=== PATIENT | female | born 1960 | race Two or more races ===

== ENCOUNTER → 2023-06-06 | Emergency (ER) | payer OTHER ==
[~2023-06-06] VITALS: Ht 162.6 cm; Wt 45.4 kg
[~2023-06-06] MED LIST: GLIPIZIDE XL10 MG PO; GLUMETZA1000 MG PO; LISINOPRIL10 MG PO
== END | disposition left against medical advice (07) ==
LOC: ER 22:04
DX: Z53.21 Procedure and treatment not carried out due to patient leaving prior to being seen by health care provider (principal)

== ENCOUNTER 2024-03-31 21:16 | Inpatient (IN) | payer OTHER ==
[~2024-03-31] VITALS: Ht 147.3 cm; Wt 39.9 kg
--- NOTE | 2024-03-31 22:03 | NUR ---
PTE ALERTA Y ORIENTADA X3 QUIEN REFIERE VENIR YA QUE LA MISMA NO GROSS COMIDO DESDE HACE 2 ARNETT, SENTIRSE DEBIL Y VOMITAR LO QUE INGIERE.
[2024-03-31] MEDS ORDERED: PLAVIX75 MG PO (22:06)
[2024-03-31] MEDS ORDERED: BENZONATATE200 M1 PO (22:06)
[2024-03-31] MEDS ORDERED: ATORVASTATIN CA40 MG PO (22:07)
[2024-03-31] MEDS ORDERED: SPIRIVA HANDIH18 MCG IH (22:08)
--- NOTE | 2024-03-31 22:13 | NUR ---
DXT 489MG/DL
[2024-03-31] MEDS ORDERED: INSULIN REGULAR, HUMAN 1,000 UNIT/10 ML UNITS ONE (22:35)
[2024-03-31] MEDS ORDERED: ALBUTEROL SULFATE 3 ML/2.5 MG AMPUL.NEB IH ONE (22:45)
[2024-03-31] MEDS ORDERED: INSULIN REGULAR, HUMAN 1,000 UNIT/10 ML UNITS IV ONE (22:45)
[2024-03-31] MEDS ORDERED: 0.9 % SODIUM CHLORIDE 1,000 ML IV ONE (22:45)
[2024-03-31] MEDS ORDERED: FAMOtidine 10 MG/ML (4ML VIAL) IV ONE (22:45)
[2024-03-31] MEDS ORDERED: PIPERACILLIN/TAZOBACTAM SODIUM 3.375 GM VIAL IV ONE ×2 (22:45→22:47)
[2024-03-31] MEDS ORDERED: FAMOTIDINE/PF 20 MG/2 ML VIAL ONE (22:47)
--- NOTE | 2024-03-31 23:07 | NUR ---
SE RECIBE A PTE EN EL AREA DE CRTICO SE CONECTA A MONITOR CARDIACO Y OXIMETRIA CONTINUA. SE CANALIZA EN MANO DERECHA CON AGIO 16 Y 20. TIENE 0.9NSS BAJANDO A 80M,L/HR CANULA NASAL A 3LIT/MIN. SE LE ORIENTA SOBRE TX MEDICO LO CUAL REFIERE ENTENDER Y ACEPTAR SE LE REALIZAN MUESTRAS DE LAB BAJO MEDIDAS ASEPTICAS Y SE LE ADMINISTRA MEDICAMENTOS ELISSA ORDEN MEDICA.
[2024-03-31] MEDS ORDERED: IPRATROPIUM BROMIDE 0.5 MG/2.5 ML AMPUL.NEB IH ONE (23:30)
[2024-03-31] MEDS ORDERED: LEVALBUTEROL HCL 1.25 MG/3 ML SOLUTION IH ONE (23:30)
[2024-03-31 23:44] LABS: ABG PH 7.529 (7.35-7.45); ABG PO2 49.4 mmHg (80-100); ABG pCO2 31.4 mmHg (35-45); BASE EXCESS 3.6 mmol/l; BICARBONATE 25.6 mmol/l (23-25); SaO2 89.6 %; Tco2 26.6 mmol/l; allen test SATISFACTORY; o2 21 %; puncture site RADIAL LEFT
[2024-03-31 23:45] LABS: HEMATOCRIT 35.3 % (36.0-45.00); HEMOGLOBIN 11.6 g/dL (12.0-15.00); MEAN CELL VOLUME 86.1 fL (80.00-100.00); MEAN CORPUSCULAR HEMOGLOBIN 28.3 pg (27.00-32.0); MEAN CORPUSCULAR HGB CONC 32.8 g/dl (32.0-36.0); PLATELET COUNT 280 K/uL (150-450); RED CELL DISTRIBUTION WIDTH 15.2 % (11.5-14.5)
--- NOTE | 2024-03-31 23:47 | NUR ---
SE RECIBE PTE ALERTA Y ORIENTADA X3 EN CAMAM BAJA Y BARANDAS ELEVADAS EN UNIDAD DE ICU-2 BAJO EL CUIDADO DE RN MELISSA. LA PTE SE OBSERVA RECIBIENDO ASISTENCIA RESPIRATORIA POR N/C @ 3LT. LAS EXTREMIDADES SUPERIOIRES SE OBSERVAN LIBRES DE EDEMA Y ERITEMA CON 2 H/L EN BRAZO DERECHO POR EL CUAL ESTA RECIBIENDO INFUSION DE 0.9 NSS @ 100ML/HR. PTE CONECTADAS A MONITOR CARDIACO Y OXYMETRIA DE PULSO CON VITALES ESTABLES ELISSA PERMITE GOLD CONDICION. SE OBSERVA ABDOMEN RETRAIBLE AL TACTO CON PERISTALSIS PRESENTE. PTE ORINANDO ESPONTANEO. PTE NO TIENE PARTE DE LA EXTRERMIDAD INFERIOIR DERECHA TAMARA DE EDEMA Y ERITEMA Y LA PIERNA IZQUIERDA BAJO TAMARA DE EDEMA Y ERITEMA
[2024-04-01 00:03] LABS: ALBUMIN 1.9 gm/dL (3.4-5.0); BILIRUBIN TOTAL 1.33 mg/dL (0.3-1.2); CALCIUM 8.2 mg/dL (8.5-10.1); CREATININE SERUM 0.72 mg/dL (0.55-1.02); GFR 81.04; GLOBULINA 3.7 G/DL (2.4-3.5); TOTAL PROTEIN 5.6 gm/dL (6.4-8.2)
[2024-04-01 00:04] LABS: ERYTHROCYTE SEDIMENTATION RATE 76 mm/hr
[2024-04-01 00:23] LABS: C-REACTIVE PROTEIN 38.2 MG/DL (0.00-0.29); POTASSIUM 1.71 mEq/L (3.5-5.1)
[2024-04-01] MEDS ORDERED: INSULIN REGULAR, HUMAN 1,000 UNIT/10 ML UNITS SUBCUTANEO STA (00:28)
[2024-04-01] MEDS ORDERED: IPRATROPIUM/ALBUTEROL SULFATE 3 ML AMPUL.NEB IH STA (00:35)
[2024-04-01] MEDS ORDERED: EPINEPHRINE HCL/PF 1 MG/ML AMPUL SUBCUTANEO STA (00:48)
[2024-04-01] MEDS ORDERED: ALBUTEROL SULFATE 3 ML/2.5 MG AMPUL.NEB IH ONE (00:55)
[2024-04-01] MEDS ORDERED: EPINEPHRINE HCL/PF 1 MG/ML AMPUL ONE (01:20)
[2024-04-01] MEDS ORDERED: INSULIN REGULAR, HUMAN 1,000 UNIT/10 ML UNITS ONE (01:21)
[2024-04-01 01:54] LABS: ABG PH 7.516 (7.35-7.45); ABG PO2 185.4 mmHg (80-100); ABG pCO2 36.5 mmHg (35-45); BASE EXCESS 5.9 mmol/l; BICARBONATE 28.9 mmol/l (23-25); SaO2 99.7 %; allen test SATISFACTORY; o2 80 %; puncture site RADIAL LEFT
[2024-04-01 02:02] LABS: URINE APPEARANCE Clear; URINE BILIRRUBIN Negative (NEGATIVE); URINE BLOOD Small; URINE COLOR Yellow; URINE LEUKOCYTE Negative; URINE NITRATE Negative; URINE UROBILINOGEN 0.2 E.U./dl
[2024-04-01 02:06] LABS: URINE EPITHELIAL CELLS 19.3 uL (0.0-38.8); URINE WBC 7.4 uL (0.0-23.2)
[2024-04-01 02:09] LABS: URINE GLUCOSE >=1000 MG/DL (NEGATIVE); URINE KETONE 40 (NEGATIVE); URINE PROTEIN 100 (NEGATIVE)
[2024-04-01] MEDS ORDERED: LEVALBUTEROL HCL 1.25 MG/3 ML SOLUTION IH SCH (07:12)
[2024-04-01] MEDS ORDERED: IPRATROPIUM BROMIDE 0.5 MG/2.5 ML AMPUL.NEB IH SCH ×2 (07:12→12:12)
[2024-04-01] MEDS ORDERED: PIPERACILLIN/TAZOBACTAM SODIUM 3.375 GM in 0.9 % SODIUM CHLORIDE 100 ML IV SCH (07:13)
[2024-04-01] MEDS ORDERED: POTASSIUM CHLORIDE IN WATER 100 ML IV ONE (07:15)
[2024-04-01] MEDS ORDERED: POTASSIUM CHLORIDE IN WATER 40 MEQ/100 ML PIGGYBAG IV ONE (07:18)
[2024-04-01] MEDS ORDERED: PIPERACILLIN/TAZOBACTAM SODIUM 3.375 GM VIAL IV ONE ×3 (07:18→23:38)
[2024-04-01] MEDS ORDERED: LEVALBUTEROL HCL 1.25 MG/3 ML SOLUTION IH ONE ×3 (07:57→16:45)
[2024-04-01] MEDS ORDERED: IPRATROPIUM BROMIDE 0.5 MG/2.5 ML AMPUL.NEB IH ONE ×3 (07:58→16:45)
--- NOTE | 2024-04-01 08:45 | NUR ---
SE RECIBE PACIENTE ALERTA Y ORIENTADA X 3 ESFERAS EN CAMA CON BARANDAS ELEVADAS POR SEGURIDAD EN LA UNIDAD DE ICU 2. CONECTADA A MONITOR CARDIACO, OXIMETRIA DE PULSO Y ASISTIDA POR UN BIPAP EL CUAL PRESENTA LOS SIGUIENTES PARAMETROS: IPAP:12, EPAP:6, FO2:50% Y R:16. RECIBIENDO IV'S 0.9NSS BAJANDO A 80ML/HR POR VENOPUNCION EN ANTEBRAZO DERECHO AREA TAMARA DE EDEMA Y ERITEMA. SE VERIFICA PATENTICIDAD DE H/L EN MANO DERECHA, NO SE ENCUENTRA PATENTE, SE DESCONTINUA H/L. BAJO MEDIDAS ASEPTICAS SE CANULA VENA EN MANO IZQUIERDA AREA TAMARA DE EDEMA Y ERITEMA. SE OBSERVA SONDA URINARIA DRENANDO A GRAVEDAD 600ML DE ORINA COLOR AMARILLO INTENSO. SE ORIENTA A PACIENTE SOBRE CONTINUIDAD DE TRATAMIENTO MEDICO, REFIERE ENTENDER. SE COLECTAN MUESTRAS DE LABORATORIO BAJO MEDIDAS ASEPTICAS. SE ADMINISTRAN MEDICAMENTOS ELISSA ORDEN MEDICA. MS. TIWARI REALIZA ABG Y ADMINISTRA TERAPIA RESPIRATORIA. SE YARELY A PACIENTE EN CAMA CON BARANDAS ELEVADAS POR SEGURIDAD Y SE MANTIENE EN OBSERVACION POR CAMBIOS EN CONDICION MEDICA. PENDIENTE CONSULTA CON .
[2024-04-01 10:01] LABS: ABG PH 7.481 (7.35-7.45); ABG PO2 69.4 mmHg (80-100); BASE EXCESS 7.6 mmol/l; BICARBONATE 32.1 mmol/l (23-25); SaO2 95.3 %; Tco2 33.4 mmol/l; allen test SATISFACTORY; puncture site RADIAL LEFT
[2024-04-01 10:02] LABS: o2 40 %
[2024-04-01 10:20] LABS: AMYLASE 24 U/L (25-115); LIPASE 9 U/L (13-75)
[2024-04-01] MEDS ORDERED: ENOXAPARIN SODIUM 40 MG/0.4 ML SYRINGE SUBCUTANEO SCH (12:05)
[2024-04-01] MEDS ORDERED: INSULIN GLARGINE,HUM.REC.ANLOG 1,000 UNITS/10 ML UNITS SUBCUTANEO SCH (12:11)
[2024-04-01] MEDS ORDERED: BUDESONIDE 0.5 MG/2 ML AMPUL.NEB IH SCH (12:12)
[2024-04-01] MEDS ORDERED: 0.9 % SODIUM CHLORIDE 1,000 ML IV SCH (12:15)
[2024-04-01] MEDS ORDERED: FAMOTIDINE/PF 20 MG/2 ML VIAL IV SCH (12:19)
[2024-04-01] MEDS ORDERED: ENOXAPARIN SODIUM 40 MG/0.4 ML SYRINGE SUBCUTANEO ONE (12:57)
[2024-04-01] MEDS ORDERED: INSULIN GLARGINE,HUM.REC.ANLOG 1,000 UNITS/10 ML UNITS SUBCUTANEO ONE (12:58)
[2024-04-01] MEDS ORDERED: FAMOTIDINE/PF 20 MG/2 ML VIAL ONE (12:59)
[2024-04-01 13:44] VITALS: BP 141/74; O2SAT 96
[2024-04-01 14:30] VITALS: BP 135/70; O2SAT 100
[2024-04-01 15:31] LABS: URINE APPEARANCE Cloudy; URINE BILIRRUBIN Negative (NEGATIVE); URINE BLOOD Moderate; URINE COLOR Yellow; URINE LEUKOCYTE Negative; URINE NITRATE Negative; URINE UROBILINOGEN 0.2 E.U./dl
[2024-04-01 15:33] LABS: URINE BACTERIA 62.4 uL (0.0-1933); URINE EPITHELIAL CELLS 41.3 uL (0.0-38.8); URINE RBC 11.9 uL (0.0-20.8); URINE WBC 14.2 uL (0.0-23.2)
[2024-04-01 16:02] LABS: URINE GLUCOSE >=1000 MG/DL (NEGATIVE); URINE KETONE 40 (NEGATIVE); URINE PROTEIN 100 (NEGATIVE)
[2024-04-01] MEDS ORDERED: BUDESONIDE 0.5 MG/2 ML AMPUL.NEB IH ONE (16:45)
[2024-04-01 17:10] VITALS: BP 155/72; O2SAT 98
[2024-04-01] MEDS ORDERED: PIPERACILLIN/TAZOBACTAM SODIUM 3.375 GM VIAL IV SCH (18:00)
[2024-04-01] MEDS ORDERED: DEXTROSE 50 % IN WATER 0.5 G/ML DISP.SYRIN IV PRN (21:15)
[2024-04-01] MEDS ORDERED: INSULIN LISPRO 1,000 UNIT/10 ML UNITS SUBCUTANEO PRN (21:15)
[2024-04-02] VITALS (7 sets, daily range): BP systolic 96–115; BP diastolic 55–71; O2SAT 96–100
[2024-04-02] MEDS ORDERED: LEVALBUTEROL HCL 0.63 MG/3 ML SOLUTION IH ONE (01:50)
[2024-04-02] MEDS ORDERED: IPRATROPIUM BROMIDE 0.5 MG/2.5 ML AMPUL.NEB IH SCH (08:00)
[2024-04-02] MEDS ORDERED: DEXTROSE 50 % IN WATER 0.5 G/ML DISP.SYRIN IV ONE (08:28)
[2024-04-02] MEDS ORDERED: CEFEPIME HCL 2,000 MG VIAL IV SCH (09:00)
[2024-04-02] MEDS ORDERED: CEFTRIAXONE SODIUM 2,000 MG VIAL IV SCH (09:00)
[2024-04-02] MEDS ORDERED: LINEZOLID 600 MG TABLET PO SCH (09:00)
[2024-04-02] MEDS ORDERED: CEFEPIME HCL 2,000 MG VIAL ONE (09:10)
[2024-04-02] MEDS ORDERED: METHYLPREDNISOLONE SOD SUCC 40 MG VIAL IV SCH (10:30)
[2024-04-02] MEDS ORDERED: IPRATROPIUM/ALBUTEROL SULFATE 3 ML AMPUL.NEB IH SCH (10:31)
[2024-04-02] MEDS ORDERED: WATER FOR INJ.,BACTERIOSTATIC 30 ML VIAL IJ ONE (10:53)
[2024-04-02] MEDS ORDERED: METHYLPREDNISOLONE SOD SUCC 40 MG VIAL ONE (10:53)
[2024-04-02] MEDS ORDERED: CHLORHEXIDINE GLUCONATE 120 ML BOTTLE TOP ONE (11:01)
[2024-04-02] MEDS ORDERED: POTASSIUM CHLORIDE IN WATER 100 ML IV SCH (12:00)
[2024-04-02 12:54] LABS: ALBUMIN 1.9 gm/dL (3.4-5.0); BILIRUBIN TOTAL 0.85 mg/dL (0.3-1.2); CALCIUM 8.2 mg/dL (8.5-10.1); CREATININE SERUM 0.54 mg/dL (0.55-1.02); GFR 112.95; TOTAL PROTEIN 5.9 gm/dL (6.4-8.2)
[2024-04-02 12:55] LABS: HEMATOCRIT 36.8 % (36.0-45.00); HEMOGLOBIN 12.1 g/dL (12.0-15.00); MEAN CELL VOLUME 83.6 fL (80.00-100.00); MEAN CORPUSCULAR HEMOGLOBIN 27.6 pg (27.00-32.0); PLATELET COUNT 287 K/uL (150-450); RED CELL DISTRIBUTION WIDTH 15.1 % (11.5-14.5)
[2024-04-02 13:04] LABS: POTASSIUM 1.91 mEq/L (3.5-5.1)
[2024-04-02] MEDS ORDERED: POTASSIUM CHLORIDE 10 MEQ CAPSULE PO STA (14:20)
[2024-04-02] MEDS ORDERED: MAGNESIUM SULFATE IN WATER 50 ML IV NR (14:30)
[2024-04-02] MEDS ORDERED: MAGNESIUM SULFATE 50% 1,000 MG/2 ML VIAL ONE (14:45)
[2024-04-02] MEDS ORDERED: INSULIN LISPRO 1,000 UNIT/10 ML UNITS SUBCUTANEO ONE (15:48)
[2024-04-02] MEDS ORDERED: POTASSIUM CHLORIDE 10 MEQ CAPSULE PO NR (20:30)
[2024-04-03] VITALS (7 sets, daily range): BP systolic 98–114; BP diastolic 59–66; O2SAT 93–98
[2024-04-03 11:19] LABS: CALCIUM 7.5 mg/dL (8.5-10.1); CREATININE SERUM 0.44 mg/dL (0.55-1.02); GFR 143.06; MAGNESIUM 1.8 mg/dL (1.8-2.4)
[2024-04-03 11:25] LABS: POTASSIUM 2.84 mEq/L (3.5-5.1)
[2024-04-03] MEDS ORDERED: POTASSIUM CHLORIDE 10 MEQ CAPSULE PO NR (12:15)
[2024-04-03] MEDS ORDERED: CLONAZEPAM 0.5 MG TABLET PO SCH (21:00)
[2024-04-03] MEDS ORDERED: INSULIN GLARGINE,HUM.REC.ANLOG 1,000 UNITS/10 ML UNITS SUBCUTANEO STA (21:04)
[2024-04-03] MEDS ORDERED: MELATONIN 5 MG TABLET PO STA (21:44)
[2024-04-03] MEDS ORDERED: POTASSIUM CHLORIDE IN WATER 40 MEQ/100 ML PIGGYBAG IV ONE (22:44)
[2024-04-04] VITALS (8 sets, daily range): BP systolic 100–113; BP diastolic 57–69; O2SAT 96–99
[2024-04-04 04:59] LABS: HEMATOCRIT 29.4 % (36.0-45.00); MEAN CELL VOLUME 84.2 fL (80.00-100.00); MEAN CORPUSCULAR HGB CONC 34.1 g/dl (32.0-36.0); PLATELET COUNT 252 K/uL (150-450); RED BLOOD COUNT 3.49 M/uL (4.00-6.00); RED CELL DISTRIBUTION WIDTH 15.5 % (11.5-14.5)
[2024-04-04 05:02] LABS: MEAN CORPUSCULAR HEMOGLOBIN 28.6 pg (27.00-32.0)
[2024-04-04 05:42] LABS: ALBUMIN 1.7 gm/dL (3.4-5.0); BILIRUBIN TOTAL 0.46 mg/dL (0.3-1.2); CALCIUM 6.7 mg/dL (8.5-10.1); CREATININE SERUM 0.53 mg/dL (0.55-1.02); GFR 115.41; GLOBULINA 2.8 G/DL (2.4-3.5); TOTAL PROTEIN 4.5 gm/dL (6.4-8.2)
[2024-04-04 07:59] LABS: POTASSIUM 2.5 mEq/L (3.5-5.1)
[2024-04-04] MEDS ORDERED: INSULIN LISPRO 1,000 UNIT/10 ML UNITS SUBCUTANEO SCH (08:00)
[2024-04-04] MEDS ORDERED: POTASSIUM CHLORIDE 10 MEQ CAPSULE PO SCH (09:00)
[2024-04-04] MEDS ORDERED: MELATONIN 5 MG TABLET PO SCH (21:00)
[2024-04-04] MEDS ORDERED: INSULIN GLARGINE,HUM.REC.ANLOG 1,000 UNITS/10 ML UNITS SUBCUTANEO SCH (21:00)
[2024-04-05] VITALS (8 sets, daily range): BP systolic 99–110; BP diastolic 56–70; O2SAT 92–100
[2024-04-05 06:36] LABS: POTASSIUM 4.05 mEq/L (3.5-5.1)
[2024-04-05 06:55] LABS: CALCIUM 6.5 mg/dL (8.5-10.1); CREATININE SERUM 0.28 mg/dL (0.55-1.02); GFR 241.02
[2024-04-05] MEDS ORDERED: CALCIUM GLUCONATE 100 MG/ML VIAL IV NR (10:15)
[2024-04-05 11:49] LABS: ABG PH 7.503 (7.35-7.45); ABG pCO2 32.6 mmHg (35-45); BASE EXCESS 2.6 mmol/l; BICARBONATE 25.1 mmol/l (23-25); Tco2 26.1 mmol/l
[2024-04-05 11:52] LABS: ABG PO2 56.4 mmHg (80-100)
[2024-04-05 11:53] LABS: allen test SATISFACTORY; o2 21 %; puncture site RADIAL LEFT
[2024-04-06] VITALS (7 sets, daily range): BP systolic 106–112; BP diastolic 62–70; O2SAT 96–99
[2024-04-06] MEDS ORDERED: INSULIN LISPRO 1,000 UNIT/10 ML UNITS SUBCUTANEO SCH ×2 (08:00→12:00)
[2024-04-06] MEDS ORDERED: FAMOtidine 20 MG TABLET PO SCH (09:00)
== END 2024-04-06 17:53 | disposition home or self-care (01) | DRG 871 ==
LOC: ER 21:18 → ICU-2 04-01 12:18 → MEDI 04-02 15:30
PROVIDERS: General Practice; ADMIT Internal Medicine; ATTEND Internal Medicine
PROC: B020ZZZ Computerized Tomography (CT Scan) of Brain (ICD-10-PCS; 2024-03-31)
PROC: 5A09457 Assistance with Respiratory Ventilation, 24-96 Consecutive Hours, Continuous Positive Airway Pressure (ICD-10-PCS; principal; 2024-04-01)
PROC: BW24ZZZ Computerized Tomography (CT Scan) of Chest and Abdomen (ICD-10-PCS; 2024-04-01)
PROC: 4A12X4Z Monitoring of Cardiac Electrical Activity, External Approach (ICD-10-PCS; 2024-04-02)
DX: A41.9 Sepsis, unspecified organism (principal); J18.0 Bronchopneumonia, unspecified organism; J96.00 Acute respiratory failure, unspecified whether with hypoxia or hypercapnia; J18.9 Pneumonia, unspecified organism; E87.20 Acidosis, unspecified; R65.20 Severe sepsis without septic shock; J44.9 Chronic obstructive pulmonary disease, unspecified; E87.5 Hyperkalemia; I10 Essential (primary) hypertension; E11.9 Type 2 diabetes mellitus without complications; Z79.4 Long term (current) use of insulin; D64.9 Anemia, unspecified